=== PATIENT | female | born 1980 | race Caucasian/White ===

== ENCOUNTER → 2021-03-16 | Outpatient (CLI) | payer BC | LOC: RAD 08:44 | PROVIDERS: ATTEND Family Medicine | DX: M79.604 Pain in right leg (principal) | CPT/HCPCS: 93970 ==

== ENCOUNTER → 2021-03-29 | Outpatient (CLI) | payer BC | LOC: US 12:19 | PROVIDERS: ATTEND Otolaryngology | DX: E04.9 Nontoxic goiter, unspecified (principal); E04.1 Nontoxic single thyroid nodule | CPT/HCPCS: 10005; 88112; 88305 ==